=== PATIENT | male | born 1980 | race Caucasian/White ===

== ENCOUNTER 2020-08-24 10:47 | Emergency (ER) | payer MEDICAID, SELFPAY ==
[~2020-08-24] VITALS: Ht 180.3 cm; Wt 117.9 kg
[2020-08-24 11:07] VITALS: BP 146/103; Ht 180.3 cm; Wt 117.9 kg
== END 2020-08-24 12:40 | disposition home or self-care (01) ==
LOC: ED 10:47
DX: U07.1 COVID-19 (principal)
CPT/HCPCS: U0003

== ENCOUNTER 2020-08-28 23:29 | Emergency (ER) | payer MEDICAID, SELFPAY ==
[~2020-08-28] VITALS: Ht 180.3 cm; Wt 113.4 kg
[2020-08-28 23:31] VITALS: Ht 180.3 cm; Wt 113.4 kg
[2020-08-29 00:53] LABS: BASOPHIL % 0.2 % (0-2); PLATELET COUNT 210 x10^3mcL (130-400); RED CELL DISTRIBUTION WIDTH 11.8 % (11.5-14.5)
[2020-08-29 01:05] LABS: CALCIUM 8.9 mg/dL (8.5-10.1); CARBON DIOXIDE 23.3 mmol/L (21-32); CHLORIDE SERUM 94 mmol/L (98-107); CREATININE SERUM 0.9 mg/dL (0.7-1.3); GFR1 > 60 mL/min; GLUCOSE SERUM 283 mg/dL (74-106); POTASSIUM SERUM 3.3 mmol/L (3.5-5.1); SODIUM SERUM 132 mmol/L (136-145)
[2020-08-29 01:10] LABS: ALBUMIN 3.4 g/dL (3.4-5.0); ALKALINE PHOSPHATASE 63 U/L (46-116); ALT/SGPT 46 U/L (16-63); AST/SGOT 29 U/L (15-37); BILIRUBIN TOTAL 1.36 mg/dL (0.20-1.00); TOTAL PROTEIN, SERUM 7.7 g/dL (6.4-8.2)
[2020-08-29 05:03] VITALS: BP 127/93
== END 2020-08-29 05:03 | disposition home or self-care (01) ==
LOC: ED 23:29
PROVIDERS: Student in an Organized Health Care Education/Training Program
DX: U07.1 COVID-19 (principal); J12.89 Other viral pneumonia; R07.89 Other chest pain
CPT/HCPCS: J0456; J0696